=== PATIENT | male | born 1990 | race Caucasian/White ===

== ENCOUNTER 2016-11-22 15:26 | Emergency (ER) | payer OTHER ==
[~2016-11-22] VITALS: Ht 188 cm; Wt 127.0 kg
[2016-11-22 15:28] VITALS: TEMP 36.6; Ht 188 cm; Wt 127.0 kg
[2016-11-22] MEDS ORDERED: NAPROXEN 250 MG TAB PO STA (15:43)
--- NOTE | 2016-11-22 16:13 | DIAGNOSTIC IMAGING REPORT ---
LEFT FOOT MIN 3 VIEWS ROUTINE CLINICAL HISTORY: Left foot pain and swelling. COMPARISON: None FINDINGS: Tarsometatarsal joints are intact. No acute fracture is identified within the left foot. Lateral view demonstrates soft tissue swelling of the dorsal left foot. IMPRESSION: 1. No acute fracture or dislocation of the left foot. 2. Dorsal soft tissue swelling of the left foot. Electronically signed by: Michael Tobin M.D. 11/22/2016 4:11 PM Dictated Date/Time: 11/22/2016 4:09 PM
[2016-11-22] MEDS ORDERED: NAPR250T2 PO (16:20)
--- NOTE | 2016-11-22 16:31 | EMERGENCY ROOM VISIT NOTE ---
ED Visit Note First contact with patient: 15:32 CHIEF COMPLAINT: Left Foot pain HISTORY OF PRESENT ILLNESS: This 26-year-old male patient presents to the emergency department, ambulatory, complaining of swelling and pain in the left foot at rest and worse with weight bearing. The patient states he does have a history of left foot pain. He states approximately one year ago, he dropped a refrigerator on the foot. He denies fracture or obvious injury at that time. He states in June, he injured the foot again. The patient states he did have an x-ray completed at urgent care at that time which revealed a possible stress fracture. The patient did not follow-up with orthopedics or his PCP regarding the injury at this time. 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 The patient states when he got home, he was experiencing a significant amount of left foot pain. The patient states the pain has been progressively worsening since then. He states yesterday, he noticed the foot was extremely swollen and states it was "purple in color". The patient rates the pain as throbbing and 7/10. The patient has had minimal relief of the pain with naproxen. The patient is able to walk. No numbness or weakness. No ankle pain. There are no lacerations of the foot. The patient is able to move all of their toes and their ankle without pain. No previous fracture to this foot. REVIEW OF SYSTEMS: GENERAL: A 6 system review of systems was completed with positives and pertinent negatives in the HPI. ALLERGIES: None MEDICATIONS: None PMH: None SOCIAL HISTORY: The patient lives locally with his family. He denies drug, alcohol, tobacco use. PHYSICAL EXAM: Vital Signs: Reviewed Nurse's notes, vital signs stable. GENERAL : This is a 26-year-old male, in no acute distress, but appears in pain, well- developed, well-nourished. MUSCULOSKELATAL: There is no visual deformity of the left foot. There is noo erythema or ecchymosis. There is no warmth. There is tenderness and swelling over the dorsal aspect of the left foot. There is no tenderness over the lateral or medial malleolus. No tenderness of the tib/fib. The range of motion of the left foot, toes, and ankle is very minimally limited secondary to pain. There is no tenderness over the plantar fascia. The skin is intact and there are no lacerations or puncture wounds. Dorsalis pedis pulse 2+. Capillary refill less than 2 seconds. RADIOLOGY: X-Ray Left Foot: FINDINGS: Tarsometatarsal joints are intact. No acute fracture is identified within the left foot. Lateral view demonstrates soft tissue swelling of the dorsal left foot. IMPRESSION: 1. No acute fracture or dislocation of the left foot. 2. Dorsal soft tissue swelling of the left foot. EMERGENCY DEPARTMENT COURSE: I examined the patient. An X-ray of the left foot was reviewed by myself and radiologist and reveals soft tissue swelling, but no acute fracture. The patient was placed in and Cristopher wrap and instructed on the use the crutches he has at home to avoid weightbearing until follow-up with orthopedics. The patient was discharged home in good condition. DIFFERENTIAL DIAGNOSIS: Stress fracture, metatarsal bone fracture, foot contusion, ligament sprain or strain, malignancy, and others. DIAGNOSIS: Foot pain TREATMENT: You were seen and evaluated in the emergency department for your left foot pain. We did perform an x-ray in the emergency department which was negative for acute fracture, however it did show soft tissue swelling. As discussed, some fractures do not show up acutely on x-ray, and he may need further imaging. Ibuprofen(Motrin, Advil) may be used for fever or pain. Use 600mg every six hours as needed. Take with food. Avoid using more than 2400mg in a 24 hour period. Do not use 2400mg per day for more than three consecutive days without physician direction. Prolonged inappropriate use can lead to stomach upset or ulcers. Do not take this medication while taking naproxen. (AND/OR) Acetaminophen(Tylenol) may be used for fever or pain. Use 1000mg every six to eight hours as needed. Avoid using more than 3000mg in a 24 hour period. Ice compresses for 20 minutes at a time four times daily for 2-3 days. Use the crutches you have at home as instructed to avoid weight-bearing. Rest and elevate your injury. Return to the ER immediately for any numbness, tingling, severe pain, extreme swelling in the extremity, fever, chills, nausea, vomiting, warmth of the foot, or as needed. Call [facility], , tomorrow to arrange follow up for your injury. Follow-up with your primary care physician in 2 to 3 days for a recheck of your current condition. Current/Historical Medications Scheduled Naproxen (Naprosyn), 500 MG PO BID Scheduled PRN Naproxen (Naprosyn), 250 MG PO BID PRN for PRN Allergies Coded Allergies: No Known Allergies (Unverified , 11/22/16) Vital Signs Date Time Temp Pulse Resp B/P (MAP) Pulse Ox O2 Delivery O2 Flow Rate FiO2 11/22/16 15:28 36.6 82 20 160/99 97 Room Air Medications Administered Medications (Trade) Dose Ordered Sig/Pato Route Start Time Stop Time Status Last Admin Dose Admin Naproxen (Naprosyn Tab) 250 mg NOW STAT PO 11/22/16 15:43 11/22/16 15:45 DC 11/22/16 15:49 250 MG Departure Information Impression Primary Impression: Foot pain Additional Impression: Foot swelling Dispostion Home / Self-Care Condition GOOD Prescriptions Naproxen (Naprosyn) 500 Mg Tab 500 MG PO BID, #60 TAB Prov: Kenna Suarez PA-C 11/22/16 Referrals Domo Nichole M.D. (PCP) Gt Pablo M.D. Patient Instructions My [facility] Additional Instructions ORTHOPEDIC INSTRUCTIONS: You were seen and evaluated in the emergency department for your left foot pain. We did perform an x-ray in the emergency department which was negative for acute fracture, however it did show soft tissue swelling. As discussed, some fractures do not show up acutely on x-ray, and he may need further imaging. Ibuprofen(Motrin, Advil) may be used for fever or pain. Use 600mg every six hours as needed. Take with food. Avoid using more than 2400mg in a 24 hour period. Do not use 2400mg per day for more than three consecutive days without physician direction. Prolonged inappropriate use can lead to stomach upset or ulcers. Do not take this medication while taking naproxen. (AND/OR) Acetaminophen(Tylenol) may be used for fever or pain. Use 1000mg every six to eight hours as needed. Avoid using more than 3000mg in a 24 hour period. Ice compresses for 20 minutes at a time four times daily for 2-3 days. Use the crutches you have at home as instructed to avoid weight-bearing. Rest and elevate your injury. Return to the ER immediately for any numbness, tingling, severe pain, extreme swelling in the extremity, fever, chills, nausea, vomiting, warmth of the foot, or as needed. Call [facility], , tomorrow to arrange follow up for your injury. Follow-up with your primary care physician in 2 to 3 days for a recheck of your current condition. Work Instructions Return To Work: 1 day Problem Qualifiers Primary Impression: Foot pain Laterality: left Qualified Codes: M79.672 - Pain in left foot
[2016-11-22] MEDS ORDERED: NAPR-1169 PO (16:36)
[2016-11-22 16:39] VITALS: BP 148/92; PULSE 72; O2SAT 96
== END 2016-11-22 16:41 | disposition home or self-care (01) ==
LOC: C.EDB 15:28 → C.EDD 16:41
DX: M79.672 Pain in left foot (principal); M79.89 Other specified soft tissue disorders

== ENCOUNTER → 2017-08-26 | Outpatient (CLI) | payer BC ==
[~2017-08-26] MED LIST: NAPR1TAB48 PO
--- NOTE | 2017-08-26 17:31 | DIAGNOSTIC IMAGING REPORT ---
L VENOUS DOPP LOWER EXT UNILAT CLINICAL HISTORY: W/TISHA, LLE SWELLING pain. Edema. TECHNIQUE: Venous Doppler COMPARISON STUDY: None FINDINGS: Normal study IMPRESSION: Normal study The above report was generated using voice recognition software. It may contain grammatical, syntax or spelling errors. Electronically signed by: Ariel Ordonez M.D. 08/26/2017 5:29 PM Dictated Date/Time: 08/26/2017 5:29 PM
--- NOTE | 2017-08-26 17:32 | DIAGNOSTIC IMAGING REPORT ---
ART DOP DUPLEX LWR EXT UNI CLINICAL HISTORY: LEFT pain. Edema. TECHNIQUE: Arterial Doppler COMPARISON STUDY: None FINDINGS: Triphasic waveforms are noted throughout. Velocities are unremarkable. Waveforms are within normal limits. Ankle-brachial brachial index on the right involving the posterior tibial is 1.1. Dorsalis pedis is 1.1. On the left, posterior tibial index is 1.1. Dorsalis pedis is 1.1 IMPRESSION: Normal arterial Doppler left leg. The above report was generated using voice recognition software. It may contain grammatical, syntax or spelling errors. Electronically signed by: Ariel Ordonez M.D. 08/26/2017 5:31 PM Dictated Date/Time: 08/26/2017 5:30 PM
== END | disposition home or self-care (01) ==
LOC: C.ULTR 16:06
PROVIDERS: ATTEND Orthopaedic Surgery Sports Medicine
DX: R60.0 Localized edema (principal)